=== PATIENT | female | born 1990 | race Caucasian/White ===

== ENCOUNTER 2016-05-01 19:13 | Emergency (ER) | payer OTHER ==
[~2016-05-01] VITALS: Ht 160 cm; Wt 92.9 kg
[2016-05-01 19:17] VITALS: TEMP 36.7; Ht 160 cm; Wt 92.9 kg
[2016-05-01] MEDS ORDERED: SODIUM CHLORIDE 0.9% 500ML 500 ML IV STA (19:25)
[2016-05-01] MEDS ORDERED: LORAZEPAM 2 MG/ML 1 ML VIAL IV STA (19:25)
[2016-05-01] MEDS ORDERED: DiphenhydrAMINE HCL 50 MG/ML VIAL IV STA (19:25)
--- NOTE | 2016-05-01 19:34 | EMERGENCY ROOM VISIT NOTE ---
History Report prepared by Alexis: Popeye Nunez Under the Supervision of: Dr. Levi Salcedo M.D. First contact with patient: 19:20 Chief Complaint: PAIN (GENERALIZED) Stated Complaint: BURNING, PAIN, SHAKING History of Present Illness The patient is a 25 year old female who presents to the Emergency Room with complaints of worsening generalized pain that began two days ago. The patient rates her pain as moderate in severity. She was an inpatient at [facility] for a week. She was started on Abilify for her bipolar disorder her last day as an in patient (two days ago). She was discharged yesterday. Her pain has been getting worse since then. She describes it as a burning and tingling in her arms and legs. She has generalized stiffness and numbness as well. She was given Cogentin to help the side effects, but it has not been helping. She took two today. She denies any other symptoms. She is on Stockwell and Atarax. She states that her other medications were unchanged. She has been eating and drinking normally. The patient states that there is no chance for her to be . Source of History: patient Onset: two days ago Position: other (global) Symptom Intensity: moderate Quality: tingling, numbness, other (shaking) Timing: worsening Associated Symptoms: + numbness Note: She denies any other symptoms. Review of Systems See HPI for pertinent positives & negatives. A total of 10 systems reviewed and were otherwise negative. Past Medical & Surgical Medical Problems: (1) Bipolar disorder Family History Patient reports no known family medical history. Social History Smoking Status: Never Smoker Smokeless Tobacco Use: No Alcohol Use: none Drug Use: none Marital Status: single Housing Status: lives alone Occupation Status: student Current/Historical Medications Scheduled Aripiprazole (Abilify), 1 TAB PO DAILY Benztropine Mesylate (Benztropine Mesylate), 1 TAB PO BID Stockwell Carbonate (Stockwell Carbonate), 300 MG PO TID Loratadine (Claritin), 10 MG PO DAILY Scheduled PRN Albuterol (Ventolin Hfa), 1 PUFF INH Q6 PRN for Wheezing Hydroxyzine HCl (Hydroxyzine HCl), 1 TAB PO HS PRN for Anxiety Allergies Coded Allergies: No Known Allergies (Unverified , 05/01/16) Physical Exam Vital Signs Date Time Temp Pulse Resp B/P Pulse Ox O2 Delivery O2 Flow Rate FiO2 05/01/16 21:05 75 18 146/85 97 05/01/16 19:17 36.7 76 18 126/85 96 Physical Exam GENERAL: Patient is in no acute distress. HEENT: No acute trauma, normocephalic atraumatic, mucous membranes moist, no nasal congestion, no scleral icterus. NECK: No stridor, no adenopathy, no meningismus, trachea is midline. LUNGS: Clear to auscultation bilaterally, no wheeze, no rhonchi, breath sounds equal. HEART: Without murmurs gallops or rubs, regular rate and rhythm. ABDOMEN: Soft, nontender, bowel sounds positive, no hernias, no peritonitis. EXTREMITIES: No cyanosis or edema, full range of motion of all the joints without pain or difficulty, no signs for acute trauma. NEUROLOGIC: Oriented x 3, no acute motor or sensory deficits, no focal weakness. Fine upper extremity tremor. 2/4 reflexes in the lower extremities bilaterally. SKIN: No rash, no jaundice, no diaphoresis. Medical Decision & Procedures Laboratory Results 05/01/16 19:33 05/01/16 19:33 Test 05/01/16 19:33 05/01/16 20:15 Red Blood Count 4.86 M/uL (4.2-5.4) Mean Corpuscular Volume 85.2 fL (80-100) Mean Corpuscular Hemoglobin 29.6 pg (25-34) Mean Corpuscular Hemoglobin Concent 34.8 g/dl (32-36) RDW Standard Deviation 36.9 fL (36.4-46.3) RDW Coefficient of Variation 12.0 % (11.5-14.5) Mean Platelet Volume 11.5 fL (7.4-10.4) Anion Gap 9.0 mmol/L (3-11) Est Creatinine Clear Calc Drug Dose 105.3 ml/min Estimated GFR () 104.5 Estimated GFR (Non- 90.1 BUN/Creatinine Ratio 13.2 (10-20) Calcium Level 8.9 mg/dl (8.5-10.1) Total Bilirubin 0.4 mg/dl (0.2-1) Aspartate Amino Transf (AST/SGOT) 10 U/L (15-37) Alanine Aminotransferase (ALT/SGPT) 20 U/L (12-78) Alkaline Phosphatase 72 U/L (45-117) Total Protein 7.5 gm/dl (6.4-8.2) Albumin 4.1 gm/dl (3.4-5.0) Globulin 3.4 gm/dl (2.5-4.0) Albumin/Globulin Ratio 1.2 (0.9-2) Thyroid Stimulating Hormone (TSH) 0.512 uIu/ml (0.300-4.500) Stockwell Level 1.0 mMOL/L (0.6-1.2) Urine Color YELLOW Urine Appearance CLEAR (CLEAR) Urine pH 5.5 (4.5-7.5) Urine Specific [place] 1.023 (1.000-1.030) Urine Protein NEG (NEG) Urine Glucose (UA) NEG (NEG) Urine Ketones NEG (NEG) Urine Occult Blood NEG (NEG) Urine Nitrite NEG (NEG) Urine Bilirubin NEG (NEG) Urine Urobilinogen NEG (NEG) Urine Leukocyte Esterase NEG (NEG) Laboratory results reviewed by me. Medications Administered Medications (Trade) Dose Ordered Sig/Rama Route Start Time Stop Time Status Last Admin Dose Admin Lorazepam (Ativan Inj) 0.5 mg NOW STAT IV 05/01/16 19:25 05/01/16 19:28 DC 05/01/16 19:47 0.5 MG Diphenhydramine HCl 50 mg 50 mg NOW STAT IV 05/01/16 19:25 05/01/16 19:28 DC 05/01/16 19:47 50 MG Sodium Chloride (Nss 500ml) 500 ml @ 999 mls/hr Q31M STAT IV 05/01/16 19:25 05/01/16 19:55 DC 05/01/16 19:47 999 MLS/HR ED Course 1919: The patient was evaluated in room A4. A complete history and physical exam was performed. 1924: Sodium Chloride 500 ml @ 999 mls/hr IV, Benadryl Inj 50 mg IV, Ativan Inj 0.5 mg IV 2039: The patient states that she feels a little better at this time. 2043: At this time, I spoke with Dr. Kinsey of Psychiatry. They recommend for the patient to stop the medication use. 2049: Reevaluated the patient. Discussed results and discharge instructions: She verbalized understanding and agreement. The patient is ready for discharge. Medical Decision Differential diagnosis includes but is not limited to: medication reaction, serotonin syndrome, dehydration, lithium toxicity, and electrolyte imbalance. There is a very mild leukocytosis, this could be consistent with infection or just the stress of her situation. No significant electrolyte abnormality, kidney failure or hepatitis. testing was negative. Urinalysis does not show evidence for infection. Stockwell level was not toxic. On exam, the patient was not febrile, there were no focal neurologic deficits. The patient presents with what sounds like a reaction to her Abilify. She received IV saline, IV Ativan and IV Benadryl, she does feel somewhat better. I discussed her case with the on-call psychiatrist. She recommended stopping the medication or adding some Benadryl to try to offset the side effects. The patient was given both options. She is being discharged and will follow with her psychiatrist in a few days. If things are worsening, she can return. Consults Time Called: 2039 Consulting Physician: Dr. Kinsey - Psychiatry Returned Call: [phone] They recommend stopping the medication use. Impression Primary Impression: Whole body pain Additional Impression: Medication reaction Scribe Attestation The scribe's documentation has been prepared under my direction and personally reviewed by me in its entirety. I confirm that the note above accurately reflects all work, treatment, procedures, and medical decision making performed by me. Departure Information Dispostion Home / Self-Care Referrals No Doctor, Assigned (PCP) Forms HOME CARE DOCUMENTATION FORM, IMPORTANT VISIT INFORMATION, WORK / SCHOOL INSTRUCTIONS Patient Instructions My [facility] Additional Instructions stop the Abilify continue the Cogentin as needed may use Benadryl 2 tab every 6 hours as well return if worsening talk with your psychiatrist about your symptoms on Tuesday Problem Qualifiers
[2016-05-01] MEDS ORDERED: ATR25 PO (19:35)
[2016-05-01] MEDS ORDERED: CGN5X PO (19:35)
[2016-05-01] MEDS ORDERED: CLR10 PO (19:35)
[2016-05-01] MEDS ORDERED: ARIP2TAB3 PO (19:35)
[2016-05-01] MEDS ORDERED: PRVHFAIN INH (19:35)
[2016-05-01] MEDS ORDERED: LITH300T2 PO (19:35)
[2016-05-01 19:48] LABS: HEMATOCRIT 41.4 % (37-47); MEAN CELL VOLUME 85.2 fL (80-100); MEAN CORPUSCULAR HEMOGLOBIN 29.6 pg (25-34); MEAN CORPUSCULAR HGB CONC 34.8 g/dl (32-36); MEAN PLATELET VOLUME 11.5 fL (7.4-10.4); PLATELET COUNT 245 K/uL (130-400); RED BLOOD COUNT 4.86 M/uL (4.2-5.4); WHITE BLOOD COUNT 11.22 K/uL (4.8-10.8)
[2016-05-01 20:08] LABS: BUN/CREATININE RATIO 13.2 (10-20); CALCIUM 8.9 mg/dl (8.5-10.1); CREATININE 0.9 mg/dl (0.60-1.20); POTASSIUM 3.8 mmol/L (3.5-5.1)
[2016-05-01 20:19] LABS: ALB/GLOB RATIO 1.2 (0.9-2); THYROID STIMULATING HORMONE 0.512 uIu/ml (0.300-4.500)
[2016-05-01 20:31] LABS: URINE APPEARANCE CLEAR (CLEAR); URINE BILIRUBIN NEG (NEG); URINE COLOR YELLOW; URINE NITRITE NEG (NEG); URINE PH 5.5 (4.5-7.5); URINE SPECIFIC GRAVITY 1.023 (1.000-1.030); UROBILINOGEN NEG (NEG)
[2016-05-01 20:38] LABS: MANUAL MICROSCOPIC REQUIRED? NO; REVIEW REQ? NO
[2016-05-01 21:05] VITALS: BP 146/85; PULSE 75; O2SAT 97
== END 2016-05-01 21:06 | disposition home or self-care (01) ==
LOC: C.EDB 19:16 → C.EDA 21:06
DX: R52 Pain, unspecified (principal); F31.9 Bipolar disorder, unspecified; Z79.899 Other long term (current) drug therapy

== ENCOUNTER 2016-05-02 22:57 | Emergency (ER) | payer OTHER ==
[~2016-05-02] VITALS: Ht 160 cm; Wt 93.5 kg
[~2016-05-02 22:57] MED LIST: ARIP2TAB3 PO; ATR25 PO; CGN5X PO; CLR10 PO; LITH300T2 PO; PRVHFAIN INH
[2016-05-02 22:59] VITALS: BP 123/62; PULSE 72; TEMP 36.8; O2SAT 97; Ht 160 cm; Wt 93.5 kg
[2016-05-02] MEDS ORDERED: LORAZEPAM 0.5 MG TAB SL STA (23:19)
[2016-05-02] MEDS ORDERED: ATIVAN 1MG HOMEPACK PO ONE (23:30)
--- NOTE | 2016-05-02 23:34 | EMERGENCY ROOM VISIT NOTE ---
ED Visit Note First contact with patient: 23:05 Chief Complaint: Pain, Burning, Shaking, Stiffness, Side Effects of Meds History of Present Illness: Patient is a 25-year-old female who presents to the emergency permit this evening for evaluation of a possible medication reaction. She reports that she was recently admitted to [facility] for mental health issues. She reports that she has bipolar disorder that is currently been managed with lithium. She was started on Abilify on while in the inpatient setting. Shortly after starting the medication she developed symptoms of restless leg. She was started on Cogentin that same day. Since that time, she is had persistent burning sensation in her legs as well as shaking and stiffness in the extremities. She has not stopped the medication. She was seen in this facility yesterday for the same complaints. She was encouraged to stop the medication per psych, but reports that she does not wish to do so as her mood swings or to intensive this point and she does not wish to have return of symptoms. She plans of persistent pain rating her discomfort a 10/10. She denies any suicidal or homicidal ideation. She reports that her mood swings been well controlled despite her symptoms of shakiness and pain. She denies any fevers, chills, headaches, dizziness, chest pain, palpitations, short of breath, nausea, or vomiting. Medications: Reviewed and discussed with the patient. Allergies: No known allergies. 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 ROS: All pertinent positive and negative review of systems are appropriately documented in the History of Present Illness. Physical Exam: VITAL SIGNS - Vital signs and nursing notes were reviewed. GENERAL - 25-year-old female appearing her stated age who is in no acute distress. Communicates well with provider and answers questions appropriately. SKIN - Without rashes. HEAD - NC/AT. EYES - PERRL with EOMI bilaterally. Sclera anicteric. Palpebral conjunctiva pink and moist with no injection noted. EARS - No deformities of external structures noted on gross examination bilaterally. No pain elicited with palpation of the tragus bilaterally. External auditory canals without discharge or otorrhea. Tympanic membranes pearly roman without retraction or bulging. No fluid or purulent material visualized behind the TM. Handle of malleus, umbo, cone of light, pars tensa/ flaccid all easily visualized. NOSE - Midline and without cyanosis. No epistaxis or purulent drainage noted. Septum midline without deviation or septal hematoma noted. MOUTH/OROPHARYNX - Without perioral cyanosis. Buccal mucosa pink and moist and without leukoplakia. Tongue midline with equal elevation of palate bilaterally. No tonsillar hypertrophy, erythema, or exudates noted. Good dentition noted. NECK - Neck with FROM. Supple to palpation. No lymphadenopathy noted. No nuchal rigidity. LUNGS - Chest wall symmetric without accessory muscle use, intercostals retractions, or central cyanosis. Normal vesicular breath sounds CTA B/L. No wheezes, rales, or rhonchi appreciated. CARDIAC - RRR with S1/S2. No murmur, rubs, or gallops appreciated. ABDOMEN - Abdominal contour obese without pulsations or visible masses. BS normoactive all four quadrants. No tenderness, palpable masses, hepatosplenomegaly, or ascites noted. EXTREMITIES - No clubbing or peripheral cyanosis. +5/5 strength noted in UE/LE bilaterally. NEUROLOGIC - Cranial nerves II through XII grossly intact. Sensory intact to light touch throughout. Patellar reflexes +2/4. PSYCH - A&Ox3 and cooperates fully with examiner. Pt is very pleasant and interacts well with examiner. No suicidal or homicidal ideation. ED Course: Patient was seen and evaluated by myself. Previous emergency department visit notes were reviewed. Previous labs were reviewed and found to be unremarkable. I had a lengthy discussion with the patient regarding her symptoms. She was provided oral dose of Ativan while in the emergency setting as well as a home pack. She was encouraged to follow-up with her psychiatrist, Dr. Gonzalez tomorrow. She has not contacted her psychiatrist from her recent visits. She has no deficits appreciated neurologically. Her exam is otherwise unremarkable. She refuses to stop her Abilify which may be contributing to her symptoms. She has no suicidal or homicidal ideations. She was educated on worrisome symptoms for return visit to the emergency department. Patient discharged home in good condition. Impression: Shakiness, Medication Reaction Discharge Instructions: Follow-up with your psychiatrist as discussed. Ativan as needed. Return for any changing or worsening symptoms. Current/Historical Medications Scheduled Aripiprazole (Abilify), 1 TAB PO DAILY Benztropine Mesylate (Benztropine Mesylate), 1 TAB PO BID [place] Carbonate ([place] Carbonate), 300 MG PO TID Loratadine (Claritin), 10 MG PO DAILY Scheduled PRN Albuterol (Ventolin Hfa), 1 PUFF INH Q6 PRN for Wheezing Hydroxyzine HCl (Hydroxyzine HCl), 1 TAB PO HS PRN for Anxiety Allergies Coded Allergies: No Known Allergies (Unverified , 05/02/16) Vital Signs Date Time Temp Pulse Resp B/P Pulse Ox O2 Delivery O2 Flow Rate FiO2 05/02/16 22:59 36.8 72 16 123/62 97 Room Air Medications Administered Medications (Trade) Dose Ordered Sig/Rama Route Start Time Stop Time Status Last Admin Dose Admin Lorazepam (Ativan Tab) 0.5 mg NOW STAT SL 05/02/16 23:19 05/02/16 23:21 DC 05/02/16 23:39 0.5 MG Lorazepam (Ativan 1MG Home Pack) 1 homepack UD ONCE PO 05/02/16 23:30 05/02/16 23:31 DC 05/02/16 23:39 1 HOMEPACK Departure Information Impression Primary Impression: Medication reaction Additional Impression: Shakiness Dispostion Home / Self-Care Condition GOOD Referrals No Doctor, Assigned (PCP) Patient Instructions My [facility] Additional Instructions Follow-up with your psychiatrist as discussed. Ativan as needed. Return for any changing or worsening symptoms. Problem Qualifiers Primary Impression: Medication reaction Encounter type: initial encounter Qualified Codes: T88.7XXA - Unspecified adverse effect of drug or medicament, initial encounter
== END 2016-05-02 23:42 | disposition home or self-care (01) ==
LOC: C.EDB 22:57
DX: T88.7XXA Unspecified adverse effect of drug or medicament, initial encounter (principal); R25.1 Tremor, unspecified; F31.9 Bipolar disorder, unspecified; Z79.899 Other long term (current) drug therapy

== ENCOUNTER 2016-05-17 09:18 | Emergency (ER) | payer OTHER ==
[~2016-05-17] VITALS: Ht 160 cm; Wt 94.0 kg
[~2016-05-17 09:18] MED LIST changes: +BENZ0.5T2 PO; -CGN5X PO
[2016-05-17 09:25] VITALS: TEMP 36.7; Ht 160 cm; Wt 94.0 kg
[2016-05-17] MEDS ORDERED: DIVA500T5 PO (10:05)
[2016-05-17 11:51] LABS: BASO % 0.2 %; BASO ABS # 0.03 K/uL (0-0.2); COMPLETE YES; EOS % 0.5 %; IG% 0.4 %; LYMPH % 15.7 %; LYMPH ABS # 1.94 K/uL (1.2-3.4); MEAN CELL VOLUME 88.8 fL (80-100); MEAN CORPUSCULAR HEMOGLOBIN 30.6 pg (25-34); MEAN CORPUSCULAR HGB CONC 34.4 g/dl (32-36); MEAN PLATELET VOLUME 11.9 fL (7.4-10.4); MONO % 5.8 %; NEUT % 77.4 %; PLATELET COUNT 303 K/uL (130-400); RED BLOOD COUNT 4.84 M/uL (4.2-5.4); WHITE BLOOD COUNT 12.38 K/uL (4.8-10.8)
[2016-05-17 12:18] LABS: ALT/SGPT 17 U/L (12-78); AST/SGOT 6 U/L (15-37); BLOOD UREA NITROGEN 5 mg/dl (7-18); BUN/CREATININE RATIO 5.9 (10-20); CALCIUM 9.4 mg/dl (8.5-10.1); CARBON DIOXIDE 29 mmol/L (21-32); CHLORIDE 105 mmol/L (98-107); CREATININE 0.85 mg/dl (0.60-1.20); GLUCOSE 78 mg/dl (70-99); POTASSIUM 3.4 mmol/L (3.5-5.1); SODIUM 142 mmol/L (136-145)
[2016-05-17 12:21] LABS: ALKALINE PHOSPHATASE 83 U/L (45-117)
[2016-05-17 13:11] LABS: LITHIUM 1.6 mMOL/L (0.6-1.2)
[2016-05-17] MEDS ORDERED: DIVALPROEX PO (13:41)
[2016-05-17 14:06] VITALS: BP 118/74; PULSE 73; O2SAT 97
--- NOTE | 2016-05-17 16:51 | EMERGENCY ROOM VISIT NOTE ---
History Report prepared by Alexis: Daiana Oneal Under the Supervision of: Dr. Clemente Pillai M.D. First contact with patient: 10:22 Chief Complaint: OTHER COMPLAINT Stated Complaint: BURNING, ITCHING ON FACE History of Present Illness The patient is a 25 year old female who presents to the Emergency Room with complaints of worsening burning and itching to her face over the past several days. She also complains of burning in her arms and legs. She is restless at night and has difficultly sleeping due to her symptoms. The patient was in the ED on May 01 and complaining of burning sensations in her arms and legs. Just prior to this she was put on Abilify for bipolar. She was placed on Cogentin at that time which did not help her symptoms. Dr. Kinsey of psychiatry recommended that the patient discontinue taking the Abilify; however, she was concerned about her mood swings and continued to take it. About a week ago, the patient was in the hospital again and was put on 750 mg Depakote. Her lithium dosage was increased. The Abilify was stopped. A few days after starting the medication, she developed burning and itching to her face along with her extremities. She is no longer on Cogentin. She was told that the symptoms would improve after some time but the patient has not had any improvement. The patient is on lithium in addition to Depakote currently. She states that when she is solely on lithium, she does not have any side effects. The patient has a psychiatrist in her hometown of [place], [place] and has an appointment in 7 days. She has not met her psychiatrist yet. Denies suicidal ideation, fevers, rash, or other complaints. Source of History: patient Onset: several days ago Position: other (face) Quality: burning, other (itching) Timing: worsening Associated Symptoms: No fevers, No rash Note: Other symptoms: burning to arms and legs, restlessness Review of Systems See HPI for pertinent positives & negatives. A total of 10 systems reviewed and were otherwise negative. Past Medical & Surgical Medical Problems: (1) Bipolar disorder Family History Patient reports no known family medical history. Social History Smoking Status: Never Smoker Alcohol Use: none Drug Use: none Marital Status: single Housing Status: lives alone Occupation Status: student Current/Historical Medications Scheduled Nyack Carbonate (N[place]ack Carbonate), 1,200 MG PO DAILY [Depakote Delay Rel], 750 MG PO QAM Scheduled PRN Albuterol (Ventolin Hfa), 1 PUFF INH Q6 PRN for Wheezing Hydroxyzine HCl (Hydroxyzine HCl), 1 TAB PO HS PRN for Anxiety Allergies Coded Allergies: No Known Allergies (Unverified , 05/02/16) Physical Exam Vital Signs Date Time Temp Pulse Resp B/P Pulse Ox O2 Delivery O2 Flow Rate FiO2 05/17/16 14:06 73 18 118/74 97 05/17/16 13:10 78 18 124/63 98 Room Air 05/17/16 11:35 77 16 137/86 99 05/17/16 09:25 36.7 69 18 107/71 100 Room Air Physical Exam Constitutional: Vital signs reviewed. Eyes: Pupils are equal round reactive to light. Conjunctiva are noninjected. ENT: Pharynx is clear without erythema or exudate. Mucous membranes are moist. Neck supple without meningeal signs. Respiratory: Clear to auscultation bilaterally. Breath sounds are equal bilaterally. Cardiovascular: Regular rate and rhythm. No rubs or gallops. GI: Soft, nondistended and nontender. Bowel sounds are present. Musculoskeletal: No peripheral edema. No lower extremity tenderness. Integumentary: No cyanosis. Neurological: The patient is awake and alert. Cranial nerves II-XII are intact. Motor is 5 out of 5 all extremities. Sensation is intact to light touch all extremities. Normal speech. No pronator drift. No tremors. No signs of tardive dyskinesia. Psychiatric: Normal affect. Medical Decision & Procedures Laboratory Results 05/17/16 11:10 Red Blood Count 4.84, Mean Corpuscular Volume 88.8, Mean Corpuscular Hemoglobin 30.6, Mean Corpuscular Hemoglobin Concent 34.4, Mean Platelet Volume 11.9, Neutrophils (%) (Auto) 77.4, Lymphocytes (%) (Auto) 15.7, Monocytes (%) (Auto) 5.8, Eosinophils (%) (Auto) 0.5, Basophils (%) (Auto) 0.2, Neutrophils # (Auto) 9.58, Lymphocytes # (Auto) 1.94, Monocytes # (Auto) 0.72, Eosinophils # (Auto) 0.06, Basophils # (Auto) 0.03 05/17/16 11:10 Test 05/17/16 11:10 White Blood Count 12.38 K/uL (4.8-10.8) Red Blood Count 4.84 M/uL (4.2-5.4) Hemoglobin 14.8 g/dL (12.0-16.0) Hematocrit 43.0 % (37-47) Mean Corpuscular Volume 88.8 fL (80-100) Mean Corpuscular Hemoglobin 30.6 pg (25-34) Mean Corpuscular Hemoglobin Concent 34.4 g/dl (32-36) Platelet Count 303 K/uL (130-400) Mean Platelet Volume 11.9 fL (7.4-10.4) Neutrophils (%) (Auto) 77.4 % Lymphocytes (%) (Auto) 15.7 % Monocytes (%) (Auto) 5.8 % Eosinophils (%) (Auto) 0.5 % Basophils (%) (Auto) 0.2 % Neutrophils # (Auto) 9.58 K/uL (1.4-6.5) Lymphocytes # (Auto) 1.94 K/uL (1.2-3.4) Monocytes # (Auto) 0.72 K/uL (0.11-0.59) Eosinophils # (Auto) 0.06 K/uL (0-0.5) Basophils # (Auto) 0.03 K/uL (0-0.2) RDW Standard Deviation 39.4 fL (36.4-46.3) RDW Coefficient of Variation 12.3 % (11.5-14.5) Immature Granulocyte % (Auto) 0.4 % Immature Granulocyte # (Auto) 0.05 K/uL (0.00-0.02) Anion Gap 8.0 mmol/L (3-11) Est Creatinine Clear Calc Drug Dose 112.2 ml/min Estimated GFR () 111.9 Estimated GFR (Non- 96.6 BUN/Creatinine Ratio 5.9 (10-20) Calcium Level 9.4 mg/dl (8.5-10.1) Total Bilirubin 0.4 mg/dl (0.2-1) Direct Bilirubin < 0.1 mg/dl (0-0.2) Aspartate Amino Transf (AST/SGOT) 6 U/L (15-37) Alanine Aminotransferase (ALT/SGPT) 17 U/L (12-78) Alkaline Phosphatase 83 U/L (45-117) Total Protein 8.3 gm/dl (6.4-8.2) Albumin 4.2 gm/dl (3.4-5.0) Valproic Acid (Depakene) Level 145 mcg/ml (50-100) Nyack Level 1.6 mMOL/L (0.6-1.2) Laboratory results as reviewed by me. ED Course 1028: The patient was evaluated in room C1B. A complete history and physical exam was performed. 1046: I discussed the case with Dr. Kinsey - Psychiatry. She said the symptoms are probably not akathisia and recommended tapering the patient off of Depakote. 1050: I reassessed the patient and updated her on my conversation with Dr. Kinsey. The patient wants to just be on lithium. She said she did well with lithium other than one episode of aggression. 1350: I discussed the case with Joni Gonzalez - ED Pharmacist. He recommended that the patient reduce her dose of Nyack from 1200 to 900 and keeping her on Depakote. 1358: I reassessed the patient and updated her on results. She has been Nyack toxic in the past and knows what to look for. She does not want an EKG and does not want me to consult with poison control. She wants to be discharged home and she will have her blood work checked in 4 days. The patient was discharged home. Medical Decision This is a 25-year-old female who presents with restlessness, aching and stiffness. Differential diagnosis includes medication side effect, akathisia, dystonic reaction, overdose, metabolic derangement. I did perform a limited focused review of portions of the patient's old chart on the electronic medical record. She was seen here May 01 and for tingling and burning in her arms and legs which started after she was placed on Abilify. She was placed on Cogentin but that has not helped. Dr. Salcedo spoke to Dr. Kinsey of psychiatry who recommended that she stop the Abilify but she did not stop it because she was concerned about her mood swings. She had lab work on the which was unremarkable including a normal lithium level. I did evaluate the patient as noted above. The patient is presenting with symptoms she believes her side effects of the medication she is taking. I did discuss case with Dr. Kinsey who recommended she perhaps taper her Depakote dose and follow up with her psychiatrist. She does not feel that she likely had an akathisia and she has been off of the Abilify for some time. IV access was established. I did order and review the patient's blood work as noted in the electronic medical record. She does have an elevated Depakote level but this is not a trough level. She took the drug this morning. Her lithium level was also elevated. I did have the ED pharmacist evaluate her and make recommendations. He recommended that the patient continue the Depakote and to reduce the level of lithium back to her original dosing before they increased it. The patient was happy with this plan. I did wish to obtain an EKG and discussed the case with poison control but the patient refused. She stated that she had an appointment and had to go and has had elevated lithium levels in the past and did not feel bad at all. She will have her levels rechecked in about 4 days. She will continue the Depakote and decrease her lithium dosing as instructed. Consults Time Called: [phone] Consulting Physician: Dr. Kinsey - Psychiatry Returned Call: [phone] I discussed the case with her. She said the symptoms are probably not akathisia and recommended tapering the patient off of Depakote. Additional Consults: Time Called: -- Consulted Physician: Joni Gonzalez - ED Pharmacist Returned Call: [phone] Additional Comments: I discussed the case with him. He recommended that the patient reduce her dose of Nyack from 1200 to 900 and keeping her on Depakote. Impression Primary Impression: Nyack toxicity Scribe Attestation The scribe's documentation has been prepared under my direct and personally reviewed by me in its entirety. I confirm that the note above accurately reflects all work, treatment, procedures, and medical decision making performed by me. Departure Information Dispostion Home / Self-Care Referrals No Doctor, Assigned (PCP) Patient Instructions Ny[place], [facility] Additional Instructions You have been examined and treated today on an emergency basis only. This is not a substitute for, or an effort to provide, complete comprehensive medical care. It is impossible to recognize and treat all injuries or illnesses in a single emergency department visit. It is therefore important that you follow up closely with your physician and have your lithium and Depakote level checked in 4 days. Call as soon as possible for an appointment. Return for worsening symptoms or if you develop fever, vomiting, palpitations, shortness of breath or any other concerning symptoms. Reduce your lithium dose back to the original level and continue your Depakote as prescribed. Problem Qualifiers Primary Impression: Nyack toxicity Encounter type: initial encounter Injury intent: accidental or unintentional Qualified Codes: T56.891A - Toxic effect of other metals, accidental (unintentional), initial encounter
== END 2016-05-17 14:07 | disposition home or self-care (01) ==
LOC: C.EDB 09:19 → C.EDC 14:07
DX: T56.891A Toxic effect of other metals, accidental (unintentional), initial encounter (principal); F31.9 Bipolar disorder, unspecified